=== PATIENT | female | born 1985 | race Two or more races ===

== ENCOUNTER 2017-11-10 14:58 | Outpatient (RCR) | payer BC | END 2017-11-16 | LOC: PT 14:58 | PROVIDERS: ATTEND Physical Medicine & Rehabilitation Sports Medicine | DX: M25.511 Pain in right shoulder (principal); M25.611 Stiffness of right shoulder, not elsewhere classified; M79.601 Pain in right arm; M62.81 Muscle weakness (generalized) ==

== ENCOUNTER 2017-12-15 15:00 | Outpatient (RCR) | payer BC | END 2017-12-17 | LOC: PT 15:00 | PROVIDERS: ATTEND Physical Medicine & Rehabilitation Sports Medicine | DX: M25.511 Pain in right shoulder (principal); M79.601 Pain in right arm ==

== ENCOUNTER 2018-01-02 09:00 | Outpatient (RCR) | payer BC | END 2018-01-16 | LOC: PT 09:00 | PROVIDERS: ATTEND Physical Medicine & Rehabilitation Sports Medicine | DX: M75.41 Impingement syndrome of right shoulder (principal); M25.511 Pain in right shoulder; M79.601 Pain in right arm; M25.611 Stiffness of right shoulder, not elsewhere classified; M62.81 Muscle weakness (generalized) | CPT/HCPCS: 97139 ==